=== PATIENT | female | born 2000 | race Caucasian/White ===

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

== ENCOUNTER 2019-01-02 17:43 | Emergency (ER) | payer OTHER ==
[2019-01-02 17:49] VITALS: BP 109/59
--- NOTE | 2019-01-02 18:13 | UC ---
General HPI - HPI Summary HPI Summary: RN notes reviewed - pt states she has been having lt shoulder muscle pain over the past 1 month. 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 pt states this pain is now in her lt arm. 18 yo female presents with mom c/o progressive L upper lat ant shoulder pain and left ant upper chest pain. Hurts to move the shoulder, carol abduction > 90d. When moves shoulder in full abduction, feels dysesthesia in fingers. Has not used nsaid, d/t it doesn't work. Has not used sling / splint, but has been holding the arm close to her chest to minimize discomfort. No known injury. No known prior injury. No rash. No sob /cp /palpitations. No GI / issues. Mild uri over a month ago, resolved well before pain started, does not think related to shoulder discomfort. Pt is R handed. - History of Current Complaint Chief Complaint: UCUpperExtremity Stated Complaint: ARM PAIN Time Seen by Provider: 01/02/19 18:13 Hx Obtained From: Patient, Family/Aviation [employer]ician [employer] Hx Last Menstrual Period: 12/15 Pain Intensity: 7 - Allergy/Home Medications Allergies/Adverse Reactions: Allergies Allergy/AdvReac Type Severity Reaction Status Date / Time No Known Allergies Allergy Verified 01/02/19 17:50 Home Medications: Home Medications Medroxyprogesterone Acetate [Depo-Provera Contraceptiv] 150 mg IM 01/02/19 [ History] PMH/Surg Hx/FS Hx/Imm Hx Previously Healthy: Yes - Surgical History Surgical History: Yes Surgery Procedure, Year, and Place: T&A, Left OVARY REMOVED FOR TORSION - Family History Known Family History: Positive: Other - cervical cancer - mom Negative: Hypertension - Social History Alcohol Use: Rare Alcohol Amount: Holiday Substance Use Type: Marijuana Substance Use Comment - Amount & Last Used: daily Smoking Status (MU): Light Every Day Tobacco Smoker Type: Cigarettes Amount Used/How Often: 5 CIG/DAY Have You Smoked in the Last Year: No Household Exposure Type: Cigarettes - Immunization History Most Recent Influenza Vaccination: 2016 Most Recent Tetanus Shot: utd Most Recent Pneumonia Vaccination: none Vaccination Up to Date: Yes Review of Systems All Other Systems Reviewed And Are Negative: Yes Constitutional: Positive: Negative Skin: Positive: Negative Eyes: Positive: Negative ENT: Positive: Negative, Other - see hpi Respiratory: Positive: Other - see hpi Cardiovascular: Positive: Other - see hpi Gastrointestinal: Positive: Negative Genitourinary: Positive: Negative Motor: Positive: Other - see hpi Neurovascular: Positive: Other - see hpi Musculoskeletal: Positive: Other: - see hpi Neurological: Positive: Other - see hpi Psychological: Positive: Negative Is Patient Immunocompromised?: No Physical Exam Triage Information Reviewed: Yes Appearance: Well-Appearing - hurts with examination, Well-Nourished Vital Signs: Initial Vital Signs Temp 99.3 F 01/02/19 17:44 Pulse 88 01/02/19 17:44 Resp 18 01/02/19 17:44 BP 109/59 01/02/19 17:44 Pulse Ox 100 01/02/19 17:44 Vital Signs Reviewed: Yes Eye Exam: Normal - grossly nonfocal ENT Exam: Normal Neck exam: Other - no carotid bruits Neck: Positive: Supple, Nontender - not focal tender, but c/o pain does shoot up left lat neck, No Lymphadenopathy Respiratory Exam: Normal Respiratory: Positive: Lungs clear, Normal breath sounds, No respiratory distress, No accessory muscle use Cardiovascular Exam: Normal Cardiovascular: Positive: RRR, No Murmur, Pulses Normal - HR correlates with L rad and ulnar pulses, Brisk Capillary Refill Abdominal Exam: Normal Abdomen Description: Positive: Nontender - no bruit appreciated Musculoskeletal Exam: Other - R ant upper shoulder discomfort to pressure upper bicep, some atrophy. Without point bony tenderness. Tender R upper ant chest wall, no rash, no crepitus. Able to abduct to approx 90% active, passive approx 100% but discontinued d/t pain. Neurological Exam: Other - see [facility] Psychological Exam: Normal Psychological: Positive: Normal Response To Family Skin Exam: Normal - nondiaphoresis. no visible or reported rash. Course/Dx - Course Course Of Treatment: ucg neg CXR - nad L shoulder - alignment ok, ? fx mid clavicle (not acute) 19:20 - d/w pt and mom. clavicle xray ordered prelim reading - final reading tomorrow per radiologist. D/w pt and mom. D/w pt and mom coa / tx plan. Will start sling during day for comfort. NSAID for at least the next 3 days. Call [facility] tomorrow to arrange f/u this week. - Diagnoses Provider Diagnosis: Arm pain, Clavicle pain, Clavicle fracture Discharge - Sign-Out/Discharge Documenting (check all that apply): Patient Departure All imaging exams completed and their final reports reviewed: No - Discharge Plan Condition: Stable Disposition: HOME Patient Education Materials: Clavicle Fracture (ED), Shoulder Pain (ED), Acetaminophen and Ibuprofen Dosing in Children (ED) Forms: *Physical Education Release Referrals: Arabella Self NP [Primary Care Provider] - Additional Instructions: POSSIBLE non-acute collar bone fracture. Final radiology read today. Sling during the day for comfort. Antiinflammatory (ex ibuprofen) at least 2x / day for 3 days, then as directed on packaging as needed for pain / inflammation. Follow up with [facility] - call tomorrow for appointment in the next 1-2 weeks. Follow up with Orthopedic doctor - call tomorrow for appointment, recommend within 1 week. Seek medical attention for worse or new problems. - Billing Disposition and Condition Condition: STABLE Disposition: Home
--- NOTE | 2019-01-03 14:33 | UC ---
- Progress Note Progress Note: RADIOLOGY REPORT REVIEWED. CONFIRMS Likely undisplaced fracture of the midshaft of the left clavicle. NO CHANGE IN MGMT. FOLLOW-UP ORTHO ADVISED. CALLED PT A COURTESY TO ADVISE BUT NO ANSWER AND VOICE MAIL NOT SET UP. Course/Dx - Diagnoses Provider Diagnoses: Arm pain, Clavicle pain, Clavicle fracture Discharge - Sign-Out/Discharge Documenting (check all that apply): Post-Discharge Follow Up All imaging exams completed and their final reports reviewed: Yes - Discharge Plan Condition: Stable Disposition: HOME Patient Education Materials: Clavicle Fracture (ED), Shoulder Pain (ED), Acetaminophen and Ibuprofen Dosing in Children (ED) Forms: *Physical Education Release Referrals: Arabella Self NP [Primary Care Provider] - Additional Instructions: POSSIBLE non-acute collar bone fracture. Final radiology read today. Sling during the day for comfort. Antiinflammatory (ex ibuprofen) at least 2x / day for 3 days, then as directed on packaging as needed for pain / inflammation. Follow up with [facility] - call tomorrow for appointment in the next 1-2 weeks. Follow up with Orthopedic doctor - call tomorrow for appointment, recommend within 1 week. Seek medical attention for worse or new problems. - Billing Disposition and Condition Condition: STABLE Disposition: Home
== END 2019-01-02 19:45 | disposition home or self-care (01) ==
LOC: UCEAST 17:43
DX: M25.512 Pain in left shoulder (principal); R07.89 Other chest pain; Z32.02 Encounter for pregnancy test, result negative; F17.210 Nicotine dependence, cigarettes, uncomplicated
CPT/HCPCS: 71046; 84702; 99211; G0463

== ENCOUNTER 2019-05-10 23:07 | Emergency (ER) | payer OTHER ==
[2019-05-10] MEDS ORDERED: NS 0.9% 1000 ML** 1,000 ML IV ONE (23:54)
[2019-05-10] MEDS ORDERED: Ketorolac INJ* 30 MG/ML 1 ML VIAL IV ONE (23:54)
--- OUTSIDE RECORDS SUMMARY | 2019-05-10 23:59 | XMS REPORT | Continuity of Care Document ---
:2000 External Reference #:[id number] Author Name Arabella Self C.P.NVera Address [address] [place] [address] Care Team Providers Name Role Phone Arabella Self C.P.NVera - Pediatrics Care Team Information Licensed Prosthetist Problems Active Problems Provider Date Active rickets Arabella Self C.P.NLupePLupe Onset: 03/12/2011 Note: HYPOPHOSPHATE Hearing loss Arabella Self C.P.N.PLupe Onset: 04/02/2011 Generalized anxiety disorder Rosana Marti D.O. Onset: 12/18/2012 Moderate depression Arabella Self C.P.N.PLupe Onset: 06/17/2015 Major depressive disorder Arabella Self C.P.N.PLupe Onset: 08/21/2018 Borderline personality disorder Arabella Self C.P.NLupePLupe Onset: 08/21/2018 Disability affecting daily living Arabella Self C.P.N.PLupe Onset: 08/21/2018 Torsion of ovary Arabella Self C.P.NLupePLupe Onset: 10/10/2018 Note: removal of left ovary Social History Type Date Description Comments Sex Unknown Tobacco Use Start: Unknown Light tobacco smoker (10 or fewer cigarettes/day) Smoking Status Reviewed: 05/01/19 Light tobacco smoker (10 or fewer cigarettes/day) Seat Belt/Car Seat always uses seat belt Guns in Home No Allergies, Adverse Reactions, Alerts Description No Known Drug Allergies Medications Active Medications SIG Qnty Indications Ordering Provider Date Benzoyl Peroxide apply to face at 60gm L70.0 Rosana Marti, 01/24/2019 5% Gel bedtime D.O. Hydroxyzine HCL Unknown 50mg Tablets Depo-Provera Unknown 150mg/ml Suspension Medications Administered in Office Medication SIG Qnty Indications Ordering Provider Date TB Intradermal Test Rosana Marti D.O. 09/06/2012 Injection Immunizations CPT Code Status Date Vaccine Lot # [id number] Given 06/23/2016 Flu Inj Quadrivalent .5ml Preserve Free [id number] Given 11/28/2015 Meningococcal A,C,Y,W135 (Menactra) [id number] Preservative Free 58431 Given 06/17/2015 Flu Inj Quadrivalent .5ml Preserve Free [id number] 75136 Given 05/28/2014 Flu Inj Quadrivalent .5ml Preserve Free [id number] 24465 Given 06/04/2013 HPV 4 Gardasil 4 [id number] 48791 Given 05/17/2013 Flu Inj Quadrivalent .5ml Preserve Free [id number] 82376 Given 06/17/2012 Flu Vacc Preserv Free Trivalent 3+yrs [id number] 69204 Given 06/04/2011 Flu Vacc Preserv Free Trivalent 3+yrs [id number] 56315 Given 06/04/2011 HPV 4 Gardasil 4 [id number] 24804 Given 04/02/2011 Hepatitis A Vaccine Pediatric/Adolescent 2 [id number] Dose Schedule 29100 Given 04/02/2011 HPV 4 Gardasil 4 [id number] 58785 Given 06/22/2010 Flu Vacc Preserv Free Trivalent 3+yrs [id number] 56352 Given 12/30/2009 Varicella (Chicken Pox) Immunization [id number] 58569 Given 12/30/2009 TdaP Immunization Age 7+ [id number] 91099 Given 12/30/2009 Hepatitis A Vaccine Pediatric/Adolescent 2 [id number] Dose Schedule 07903 Given 12/03/2008 Meningococcal A,C,Y,W135 (Menactra) Preservative Free 97976 Given 07/02/2008 Flu Vacc Preserv Free Trivalent 3+yrs 83656 Given 06/26/2007 Flu Vacc Preserv Free Trivalent 3+yrs 00975 Given 06/28/2006 Flu Vacc Preserv Free Trivalent 3+yrs 11032 Given 10/29/2004 DTaP Immunization under age 7 74331 Given 10/29/2004 MMR Virus Immunization 40490 Given 10/29/2004 Poliomyelitis Immunization 56351 Given 07/27/2001 Pneumococcal 7valent - Prevnar 96533 Given 04/06/2001 Pneumococcal 7valent - Prevnar 40891 Given 01/04/2001 DTaP Immunization under age 7 75593 Given 01/04/2001 Hib Vaccine 30331 Given 10/06/2000 Varicella (Chicken Pox) Immunization 87634 Given 10/06/2000 Poliomyelitis Immunization 70235 Given 10/06/2000 MMR Virus Immunization 55091 Given 04/04/2000 Hib Vaccine 19695 Given 04/04/2000 DTaP Immunization under age 7 16299 Given 04/04/2000 Hepatitis B Imm Age 0 to 19yr 06059 Given 01/29/2000 Hepatitis B Imm Age 0 to 19yr 12697 Given 01/29/2000 Poliomyelitis Immunization 50656 Given 01/29/2000 DTaP Immunization under age 7 35671 Given 01/29/2000 Hib Vaccine 85538 Given 1999 Poliomyelitis Immunization 34189 Given 1999 DTaP Immunization under age 7 34948 Given 1999 Hib Vaccine 06655 Given 1999 Hepatitis B Imm Age 0 to 19yr Vital Signs Date Vital Result Comment 05/04/2019 12:03pm Weight 122.25 lb Weight 55.453 kg Weight Percentile 39th Body Temperature 98.6 F Heart Rate 74 /min BP Systolic 108 mmHg BP Diastolic 65 mmHg 05/01/2019 3:50pm Height 58 inches 4'10" Height Percentile 3 % Weight 122.50 lb Weight 55.566 kg Weight Percentile 40th Heart Rate 88 /min BP Systolic 112 mmHg BP Diastolic 67 mmHg BMI (Body Mass Index) 25.6 kg/m2 Body Mass Index Percentile 82 % Results Test Date Facility Test Result H/L Range Note CBC Auto 05/01/2019 [facility] White Blood 8.6 10^3/uL Normal 3.5-10.[address] Count [place], [place] [id number] [phone] Red Blood Count 4.78 10^6/uL Normal 3.70-4.87 Hemoglobin 13.6 g/dL Normal 12.0-16.0 Hematocrit 40 % Normal 35-47 Mean Corpuscular Volume 84 fL Normal 80-97 Mean Corpuscular Hemoglobin 29 pg Normal 27-31 Mean Corpuscular HGB Conc 34 g/dL Normal 31-36 Red Cell Distribution Width 14 % Normal 10-15 Abs Neutrophils 4.4 10^3/uL Normal 1.5-7.7 Abs Lymphocytes 3.3 10^3/uL Normal 1.0-4.8 Abs Monocytes 0.5 10^3/uL Normal 0-0.8 Abs Eosinophils 0.3 10^3/uL Normal 0-0.6 Abs Basophils 0.1 10^3/uL Normal 0-0.2 Abs Nucleated RBC 0.0 10^3/uL Granulocyte % 51.5 % Lymphocyte % 38.7 % Monocyte % 6.1 % Eosinophil % 3.1 % Basophil % 0.6 % Nucleated Red Blood Cells % 0.0 Platelet Count (SEE NOTE) 10^3/uL 150-450 1 Mean Platelet Volume (SEE NOTE) fL 7.4-10.4 2 Comp Metabolic 05/01/2019 [facility] Sodium 138 mmol/L Normal 135-[address] [place] [address] [phone] Potassium 4.0 mmol/L Normal 3.5-5.0 Chloride 108 mmol/L Normal 101-111 Co2 Carbon Dioxide 25 mmol/L Normal 22-32 Anion Gap 5 mmol/L Normal 2-11 Glucose 96 mg/dL Normal 70-100 Blood Urea Nitrogen 8 mg/dL Normal 6-24 Creatinine 0.57 mg/dL Normal 0.51-0.95 BUN/Creatinine Ratio 14.0 Normal 8-20 Calcium 9.5 mg/dL Normal 8.6-10.3 Total Protein 7.1 g/dL Normal 6.4-8.9 Albumin 4.7 g/dL Normal 3.2-5.2 Globulin 2.4 g/dL Normal 2-4 Albumin/Globulin Ratio 2.0 Normal 1-3 Total Bilirubin 0.20 mg/dL Normal 0.2-1.0 Alkaline Phosphatase 101 U/L Normal 34-104 Alt 4 U/L Low 7-52 Ast 13 U/L Normal 13-39 Egfr Non- 136.6 >60 Egfr 165.3 >60 3 Laboratory test 05/01/2019 [facility] Lyme Screen Negative Negative finding [address] W/ [place] [address] WB [phone] TSH (Thyroid Stim Horm) 2.01 mcIU/mL Normal 0.34-5.60 Vitamin D Total 25(Oh) 27.8 ng/mL Normal 20-50 4 Laboratory test 01/02/2019 [facility] Poc , Negative Negative [address] [place] [address] [phone] 1 PLT CLUMPS 2 PLT CLUMPS 3 Because ethnic data is not always readily available, this report includes an eGFR for both -Americans and non- Americans. The National Kidney Disease Education Program (NKDEP) does not endorse the use of the MDRD equation for patients that are not between the ages of 18 and 70, are , have extremes of body size, muscle mass, or nutritional status, or are non- or non-. According to the National Kidney Foundation, irrespective of diagnosis, the stage of the disease is based on the level of kidney function: Stage Description GFR(mL/min/1.73 m(2)) 1 Kidney damage with normal or decreased GFR 90 2 Kidney damage with mild decrease in GFR 60-89 3 Moderate decrease in GFR 30-59 4 Severe decrease in GFR 15-29 5 Kidney failure <15 (or dialysis) 4 Total 25-Hydroxyvitamin D2 and D3 (25-OH-VitD) <10 ng/mL (severe deficiency) 10-19 ng/mL (mild to moderate deficiency) 20-50 ng/mL (optimum levels) 51-80 ng/mL (increased risk of hypercalciuria) >80 ng/mL (toxicity possible) 5 Engineering Surveyor: [id number] Test Disclaimer: Positive bacteria, red blood cells, white blood cells, early , low specific gravity, and other factors may cause false positive or negative results. It is recommended to retest unexpected results within 24 to 72 hours with a serum test when applicable. If is still suspected, please repeat test after 48 to 72 hours. Procedures Description No Information Available Medical Devices Description No Information Available Encounters Type Date Location Provider Dx Diagnosis Office Visit 05/04/2019 12:15p Main Office Arabella Self, R53.83 Other fatigue C.P.N.P. R10.9 Unspecified abdominal pain Office Visit 05/01/2019 East Office Scarquan Alves, R53.83 Other fatigue 4:00p M.DLupe Office Visit 01/24/2019 [facility] Office Rosana Marti, H65.93 Unspecified 9:30a D.O. nonsuppurative otitis media, bilateral L70.0 Acne vulgaris Assessments Date Code Description Provider 05/04/2019 R53.83 Other fatigue Weston Randolph.P.N.P. 05/04/2019 R10.9 Unspecified abdominal pain Weston Randolph.P.N.P. 05/01/2019 R53.83 Other fatigue Scar Alves M.D. 01/24/2019 H65.93 Serous otitis media Rosana Marti D.O. 01/24/2019 L70.0 Acne Rosana Marti D.O. Plan of Treatment 05/04/2019 - Chucky RandolphP.N.PLupeR53.83 Other [id number] Unspecified abdominal painNew Labs:.Urine Culture In House, Ordered: 05/04/19.Urine dip - see nurse note, Ordered: 05/04/19Follow up:As needed. Functional Status Description No Information Available Mental Status Description No Information Available Referrals Refer to Dr Reason for Referral Status Appt Date Ranjan Perez M.D. Acne Sent 02/26/2019 [facility] [address] [place] [address], [address] [place] [id number] [phone]
--- OUTSIDE RECORDS SUMMARY | 2019-05-10 23:59 | XMS REPORT | Continuity of Care Document ---
:1999 External Reference #:[id number] Author Name Scar Alves M.D. Address [address] [place] [address] Care Team Providers Name Role Phone Arabella Self C.P.NLupePLupe - Pediatrics Care Team Information Marketing Project Lead Problems Active Problems Provider Date Active rickets Chucky RandolphPLupeNLupePLupe Onset: 03/12/2011 Note: HYPOPHOSPHATE Hearing loss Arabella Self C.P.N.PLupe Onset: 04/02/2011 Generalized anxiety disorder Rosana Marti D.O. Onset: 12/18/2012 Moderate depression Arabella Self C.P.N.PLupe Onset: 06/17/2015 Major depressive disorder Arabella Self C.P.N.PLupe Onset: 08/21/2018 Borderline personality disorder Arabella Self C.P.NLupePLupe Onset: 08/21/2018 Disability affecting daily living Arabella Self C.P.N.PLupe Onset: 08/21/2018 Torsion of ovary Arabella Self C.P.NVera Onset: 10/10/2018 Note: removal of left ovary [...] apply to face at 60gm L70.0 Rosana Burrisy, 01/24/2019 5% Gel bedtime D.O. Hydroxyzine HCL Unknown 50mg Tablets Depo-Provera Unknown 150mg/ml Suspension Medications Administered in Office Medication SIG Qnty Indications Ordering Provider Date TB Intradermal Test Rosana Marti D.O. 09/06/2012 Injection Immunizations CPT Code Status Date Vaccine Lot # [id number] Given 06/23/2016 Flu Inj Quadrivalent .5ml Preserve Free [id number] 86062 Given 11/28/2015 Meningococcal A,C,Y,W135 (Menactra) [id number] Preservative Free 31610 Given 06/17/2015 Flu Inj Quadrivalent .5ml Preserve Free [id number] 08607 Given 05/28/2014 Flu Inj Quadrivalent .5ml Preserve Free [id number] 72497 Given 06/04/2013 HPV 4 Gardasil 4 [id number] 84983 Given 05/17/2013 Flu Inj Quadrivalent .5ml Preserve Free [id number] 50005 Given 06/17/2012 Flu Vacc Preserv Free Trivalent 3+yrs [id number] 59123 Given 06/04/2011 Flu Vacc Preserv Free Trivalent 3+yrs [id number] 95624 Given 06/04/2011 HPV 4 Gardasil 4 [id number] 65522 Given 04/02/2011 Hepatitis A Vaccine Pediatric/Adolescent 2 [id number] Dose Schedule 91350 Given 04/02/2011 HPV 4 Gardasil 4 [id number] 08715 Given 06/22/2010 Flu Vacc Preserv Free Trivalent 3+yrs [id number] 20964 Given 12/30/2009 Varicella (Chicken Pox) Immunization [id number] 39759 Given 12/30/2009 TdaP Immunization Age 7+ [id number] 91923 Given 12/30/2009 Hepatitis A Vaccine Pediatric/Adolescent 2 [id number] Dose Schedule 01226 Given 12/03/2008 Meningococcal A,C,Y,W135 (Menactra) Preservative Free 90473 Given 07/02/2008 Flu Vacc Preserv Free Trivalent 3+yrs 98779 Given 06/26/2007 Flu Vacc Preserv Free Trivalent 3+yrs 48674 Given 06/28/2006 Flu Vacc Preserv Free Trivalent 3+yrs 96565 Given 10/29/2004 DTaP Immunization under age 7 84521 Given 10/29/2004 MMR Virus Immunization 05253 Given 10/29/2004 Poliomyelitis Immunization 45451 Given 07/27/2001 Pneumococcal 7valent - Prevnar 22095 Given 04/06/2001 Pneumococcal 7valent - Prevnar 30910 Given 01/04/2001 DTaP Immunization under age 7 79913 Given 01/04/2001 Hib Vaccine 77715 Given 10/06/2000 Varicella (Chicken Pox) Immunization 50332 Given 10/06/2000 Poliomyelitis Immunization 26749 Given 10/06/2000 MMR Virus Immunization 48511 Given 04/04/2000 Hib Vaccine 55048 Given 04/04/2000 DTaP Immunization under age 7 39843 Given 04/04/2000 Hepatitis B Imm Age 0 to 19yr 65591 Given 01/29/2000 Hepatitis B Imm Age 0 to 19yr 53614 Given 01/29/2000 Poliomyelitis Immunization 01144 Given 01/29/2000 DTaP Immunization under age 7 39309 Given 01/29/2000 Hib Vaccine 10344 Given 1999 Poliomyelitis Immunization 02191 Given 1999 DTaP Immunization under age 7 69966 Given 1999 Hib Vaccine 71220 Given 1999 Hepatitis B Imm Age 0 to 19yr Vital Signs Date Vital Result Comment 05/01/2019 3:50pm Height 58 inches 4'10" Height Percentile 3 % Weight 122.50 lb Weight 55.566 kg Weight Percentile 40th Heart Rate 88 /min BP Systolic 112 mmHg BP Diastolic 67 mmHg BMI (Body Mass Index) 25.6 kg/m2 Body Mass Index Percentile 82 % 01/24/2019 9:34am Weight 119.00 lb Weight 53.978 kg Weight Percentile 34th Body Temperature 98.4 F Results Test Date Facility Test Result H/L Range Note Laboratory test 01/02/2019 [facility] Negative Negative [address] , [place] [address] Urine [phone] 1 Product Support Engineer: [id number] Test Disclaimer: Positive bacteria, red blood cells, [...] Date Location Provider Dx Diagnosis Office Visit 01/24/2019 [facility] Office Rosana Figueroa, H65.93 Unspecified 9:30a D.O. nonsuppurative otitis media, bilateral L70.0 Acne vulgaris Assessments Date Code Description Provider 05/01/2019 R53.83 Other fatigue Scar Alves M.D. 01/24/2019 H65.93 Serous otitis media Suzanne Del RealOLupe 01/24/2019 L70.0 Acne Rosana Marti D.O. Plan of Treatment 05/01/2019 - Scar Alves M.D.R53.83 Other fatigueFollow up:with Arabella in 4 to 7 days, oc30 Functional Status Description No Information Available Mental Status Description No Information Available Referrals Refer to Dr Reason for Referral Status Appt Date Ranjan Perez M.D. Acne Sent 02/26/2019 [facility] [address] [place] [address], [place] [address] [phone]
[2019-05-11 00:31] LABS: ABS Basophils 0.1 10^3/ul (0-0.2); ABS Eosinophils 0.3 10^3/ul (0-0.6); ABS Lymphocytes 4.2 10^3/ul (1.0-4.8); ABS Monocytes 0.7 10^3/ul (0-0.8); ABS Neutrophils 4.3 10^3/ul (1.5-7.7); Eosinophil % 2.9 %; Hematocrit 39 % (35-47); Hemoglobin 12.7 g/dL (12.0-16.0); Lymphocyte % 44.3 %; Mean Corpuscular HGB Conc 33 g/dL (31-36); Mean Corpuscular Hemoglobin 28 pg (27-31); Mean Corpuscular Volume 84 fL (80-97); Mean Platelet Volume 8.7 fL (7.4-10.4); Nucleated Red Blood Cells % 0.1; Platelet Count 174 10^3/uL (150-450); Red Blood Count 4.56 10^6 /uL (3.70-4.87); Red Cell Distribution Width 14 % (10-15); White Blood Count 9.5 10^3/uL (3.5-10.8)
[2019-05-11 00:37] LABS: Urine Appearance Cloudy; Urine Bacteria Absent (Absent); Urine Bilirubin Negative (Negative); Urine Blood 3+ (Negative); Urine Color Straw; Urine Glucose Negative (Negative); Urine Ketones Negative (Negative); Urine Nitrite Negative (Negative); Urine Protein Negative (Negative); Urine Red Blood Cell Trace(0-2/hpf) (Absent); Urine Specific Gravity 1.004 (1.010-1.030); Urine Squamous Epithelial Cell Present (Absent); Urine Urobilinogen Negative (Negative); Urine White Blood Cell Trace(0-5/hpf) (Absent)
[2019-05-11 00:39] LABS: INR 1.05 (0.82-1.09)
[2019-05-11 00:51] LABS: ALT 4 U/L (7-52); AST 14 U/L (13-39); Albumin 4.3 g/dL (3.2-5.2); Albumin/Globulin Ratio 1.7 (1-3); Alkaline Phosphatase 85 U/L (34-104); Anion Gap 4 mmol/L (2-11); BUN/Creatinine Ratio 9.5 (8-20); Blood Urea Nitrogen 6 mg/dL (6-24); CO2 Carbon Dioxide 27 mmol/L (22-32); Calcium 8.8 mg/dL (8.6-10.3); Chloride 108 mmol/L (101-111); EGFR African American 147.3 (>60); EGFR Non-African American 121.7 (>60); Globulin 2.5 g/dL (2-4); Glucose 83 mg/dL (70-100); Potassium 3.8 mmol/L (3.5-5.0); Sodium 139 mmol/L (135-145); Total Protein 6.8 g/dL (6.4-8.9)
[2019-05-11 00:58] LABS: HCG Pregnancy < 0.60 mIU/mL
[2019-05-11 01:54] LABS: HIV 4th Generation Nonreactive (Nonreactive)
--- NOTE | 2019-05-11 02:13 | ED ---
Abdominal Pain/Female - HPI Summary HPI Summary: /Patient is a 18 year old F presenting to [facility] accompanied by boyfriend with chief complaint of vaginal bleeding for the past days. Patient states that she was seen by her PCP on Tuesday05/04/19 and went [facility] Tuesday. Patient denies taking anything for pain. Patient denies nausea, vomiting, and fever. Patient rates the pain 7/10. Symptoms aggravated by nothing. Symptoms alleviated by nothing. - History of Current Complaint Chief Complaint: EDVaginalBleeding Stated Complaint: HEMORRHAGING PER EMS Time Seen by Provider: 05/10/19 23:54 Hx Obtained From: Patient Hx Last Menstrual Period: 12/15 ?: No Onset/Duration: Lasting Days - 05/04/19 Timing: Constant Severity Currently: Moderate Pain Intensity: 7 Pain Scale Used: 0-10 Numeric Location: Suprapubic Radiates: No Character: Sharp Aggravating Factor(s): Nothing Alleviating Factor(s): Nothing Associated Signs and Symptoms: Positive: Vaginal Bleeding. Negative: Fever, Nausea, Vomiting Allergies/Adverse Reactions: Allergies Allergy/AdvReac Type Severity Reaction Status Date / Time No Known Allergies Allergy Verified 01/02/19 17:50 PMH/Surg Hx/FS Hx/Imm Hx Endocrine/Hematology History: Denies: Hx Diabetes, Hx Systemic Lupus Erythematosus, Hx Sickle Cell Disease , Hx Thyroid Disease, Other Endocrine/Hematological Disorders Cardiovascular History: Denies: Hx Hypertension, Hx Pacemaker/ICD Respiratory History: Reports: Hx Asthma, Other Respiratory Problems/Disorders - PLEURISY? History: Reports: Hx Kidney Stones, Other Problems/Disorders - LEFT OVARIAN TORSION 2005- OVARY REMOVED Denies: Hx Renal Disease Musculoskeletal History: Reports: Other Musculoskeletal History - IDIOPATHIC DWARFISM and vit D-resistant nellie Sensory History: Denies: Hx Contacts or Glasses, Hx Legally Blind, Hx Deafness, Hx Hearing Aid Opthamlomology History: Denies: Hx Contacts or Glasses, Hx Legally Blind Neurological History: Reports: Hx Migraine Psychiatric History: Reports: Hx Anxiety, Hx Depression, Hx Inpatient Treatment , Hx Community Mental Health Tx, Hx Suicide Attempt, Hx Substance Abuse - pos for MJ this admission Denies: Hx Attention Deficit Hyperactivity Disorder, Hx Eating Disorder, Hx Panic Disorder, Hx Bipolar Disorder, Hx of Violent Episodes Against Others - Cancer History Hx Chemotherapy: No Hx Radiation Therapy: No Hx Palliative Cancer Treatment: No - Surgical History Surgery Procedure, Year, and Place: T&A, Left OVARY REMOVED FOR TORSION Hx Anesthesia Reactions: No - Immunization History Date of Tetanus Vaccine: UNK Date of Influenza Vaccine: UNK Infectious Disease History: Yes Infectious Disease History: Denies: Hx Clostridium Difficile, Hx Hepatitis, Hx Human Immunodeficiency Virus (HIV), Hx of Known/Suspected MRSA, Hx Shingles, Hx Tuberculosis, Hx Known/ Suspected VRE, Hx Known/Suspected VRSA, History Other Infectious Disease, Traveled Outside the [place] in Last 30 Days - Family History Known Family History: Positive: Other - cervical cancer - mom Negative: Hypertension - Social History Alcohol Use: Rare Alcohol Amount: Holiday Hx Substance Use: Yes Substance Use Type: Reports: Marijuana Substance Use Comment - Amount & Last Used: daily Hx Tobacco Use: No Smoking Status (MU): Light Every Day Tobacco Smoker Type: Cigarettes Amount Used/How Often: 5 CIG/DAY Have You Smoked in the Last Year: No Review of Systems Negative: Fever Positive: Abdominal Pain. Negative: Vomiting, Nausea Positive: other - Vaginal bleeding All Other Systems Reviewed And Are Negative: Yes Physical Exam - Summary Physical Exam Summary: General: Well-developed, Well-nourished (MALE/FEMALE). No acute distress. HEENT: Normocephalic, Atraumatic. Eyes: Conjuctiva normal, PERRL. Ears: TMs within normal limits. Nares: (-) discharge, (-) erythema. Oropharynx: Clear, mucous membranes moist, (-) exudates. Neck: Soft, FROM, (-) lymphadenopathy, (-) thyromegaly, (-) JVD. Cardiovascular: Normal sinus rhythm, (-) murmur. Lungs: Clear to auscultation bilaterally (-) wheezes, (-) rales, (-) rhonchi. Abdomen: Soft, Mild lower abdominal tenderness , non-distended, (-) organomegaly , normal bowel sounds. Back: (-) CVA tenderness Extremities: No edema. Skin: Warm, dry, (-) rash. Neuro: Alert and oriented x3, no focal deficits. Psychiatric: Mood normal, affect normal. Triage Information Reviewed: Yes Vital Signs On Initial Exam: Initial Vitals Temp Pulse Resp BP Pulse Ox 98.0 F 84 18 99/69 100 05/10/19 23:10 05/10/19 23:10 05/10/19 23:10 05/10/19 23:10 05/10/19 23:10 Vital Signs Reviewed: Yes Diagnostics - Vital Signs Vital Signs Temp Pulse Resp BP Pulse Ox 05/11/19 01:55 98.0 F 70 17 104/56 98 05/10/19 23:10 98.0 F 84 18 99/69 100 - Laboratory Lab Results: Lab Results 05/11/19 05/11/19 05/11/19 Range/Units 00:00 00:17 00:17 WBC 9.5 (3.5-10.8) 10^3/uL RBC 4.56 (3.70-4.87) 10^6 /uL Hgb 12.7 (12.0-16.0) g/dL Hct 39 (35-47) % MCV 84 (80-97) fL MCH 28 (27-31) pg MCHC 33 (31-36) g/dL RDW 14 (10-15) % Plt Count 174 (150-450) 10^3/uL MPV 8.7 (7.4-10.4) fL Neut % (Auto) 45.2 % Lymph % (Auto) 44.3 % [place] % (Auto) 6.9 % Eos % (Auto) 2.9 % Baso % (Auto) 0.7 % Absolute Neuts (auto) 4.3 (1.5-7.7) 10^3/ul Absolute Lymphs (auto) 4.2 (1.0-4.8) 10^3/ul Absolute Monos (auto) 0.7 (0-0.8) 10^3/ul Absolute Eos (auto) 0.3 (0-0.6) 10^3/ul Absolute Basos (auto) 0.1 (0-0.2) 10^3/ul Absolute Nucleated RBC 0.0 10^3/ul Nucleated RBC % 0.1 INR (Anticoag Therapy) 1.05 (0.82-1.09) Sodium (135-145) mmol/L Potassium (3.5-5.0) mmol/L Chloride (101-111) mmol/L Carbon Dioxide (22-32) mmol/L Anion Gap (2-11) mmol/L BUN (6-24) mg/dL Creatinine (0.51-0.95) mg/dL Est GFR ( Amer) (>60) Est GFR (Non-Af Amer) (>60) BUN/Creatinine Ratio (8-20) Glucose (70-100) mg/dL Lactic Acid (0.5-2.0) mmol/L Calcium (8.6-10.3) mg/dL Total Bilirubin (0.2-1.0) mg/dL AST (13-39) U/L ALT (7-52) U/L Alkaline Phosphatase (34-104) U/L Total Protein (6.4-8.9) g/dL Albumin (3.2-5.2) g/dL Globulin (2-4) g/dL Albumin/Globulin Ratio (1-3) Beta HCG, Quant mIU/mL Urine Color Straw Urine Appearance Cloudy Urine pH 7.0 (5-9) Ur Specific [place] 1.004 L (1.010-1.030) Urine Protein Negative (Negative) Urine Ketones Negative (Negative) Urine Blood 3+ A (Negative) Urine Nitrate Negative (Negative) Urine Bilirubin Negative (Negative) Urine Urobilinogen Negative (Negative) Ur Leukocyte Esterase Trace A (Negative) Urine WBC (Auto) Trace(0-5/hpf) (Absent) Urine RBC (Auto) Trace(0-2/hpf) (Absent) Ur Squamous Epith Cells Present A (Absent) Urine Bacteria Absent (Absent) Urine Glucose Negative (Negative) 05/11/19 05/11/19 Range/Units 00:17 00:17 WBC (3.5-10.8) 10^3/uL RBC (3.70-4.87) 10^6 /uL Hgb (12.0-16.0) g/dL Hct (35-47) % MCV (80-97) fL MCH (27-31) pg MCHC (31-36) g/dL RDW (10-15) % Plt Count (150-450) 10^3/uL MPV (7.4-10.4) fL Neut % (Auto) % Lymph % (Auto) % [place] % (Auto) % Eos % (Auto) % Baso % (Auto) % Absolute Neuts (auto) (1.5-7.7) 10^3/ul Absolute Lymphs (auto) (1.0-4.8) 10^3/ul Absolute Monos (auto) (0-0.8) 10^3/ul Absolute Eos (auto) (0-0.6) 10^3/ul Absolute Basos (auto) (0-0.2) 10^3/ul Absolute Nucleated RBC 10^3/ul Nucleated RBC % INR (Anticoag Therapy) (0.82-1.09) Sodium 139 (135-145) mmol/L Potassium 3.8 (3.5-5.0) mmol/L Chloride 108 (101-111) mmol/L Carbon Dioxide 27 (22-32) mmol/L Anion Gap 4 (2-11) mmol/L BUN 6 (6-24) mg/dL Creatinine 0.63 (0.51-0.95) mg/dL Est GFR ( Amer) 147.3 (>60) Est GFR (Non-Af Amer) 121.7 (>60) BUN/Creatinine Ratio 9.5 (8-20) Glucose 83 (70-100) mg/dL Lactic Acid 0.5 (0.5-2.0) mmol/L Calcium 8.8 (8.6-10.3) mg/dL Total Bilirubin 0.30 (0.2-1.0) mg/dL AST 14 (13-39) U/L ALT 4 L (7-52) U/L Alkaline Phosphatase 85 (34-104) U/L Total Protein 6.8 (6.4-8.9) g/dL Albumin 4.3 (3.2-5.2) g/dL Globulin 2.5 (2-4) g/dL Albumin/Globulin Ratio 1.7 (1-3) Beta HCG, Quant < 0.60 mIU/mL Urine Color Urine Appearance Urine pH (5-9) Ur Specific [place] (1.010-1.030) Urine Protein (Negative) Urine Ketones (Negative) Urine Blood (Negative) Urine Nitrate (Negative) Urine Bilirubin (Negative) Urine Urobilinogen (Negative) Ur Leukocyte Esterase (Negative) Urine WBC (Auto) (Absent) Urine RBC (Auto) (Absent) Ur Squamous Epith Cells (Absent) Urine Bacteria (Absent) Urine Glucose (Negative) Result Diagrams: 05/11/19 00:17 05/11/19 00:17 Lab Statement: Any lab studies that have been ordered have been reviewed, and results considered in the medical decision making process. Abdominal Pain Fem Course/Dx - Diagnoses Provider Diagnoses: Metrorrhagia Discharge ED - Sign-Out/Discharge Documenting (check all that apply): Patient Departure - discharge Patient Received Moderate/Deep Sedation with Procedure: No - Discharge Plan Condition: Stable Disposition: HOME Patient Education Materials: Dysfunctional Uterine Bleeding (ED) Referrals: [facility] [Outside] - 3 Days Arabella Self NP [Primary Care Provider] - 3 Days Additional Instructions: Please follow up with your primary care physician as well as [facility] in [place] within three days. Please return to ED for any new or worsening symptoms. - Billing Disposition and Condition Condition: STABLE Disposition: Home - Attestation Statements Document Initiated by Ajay: Yes Documenting Pamibe: Tenisha Daugherty Provider For Whom Ajay is Documenting (Include Credential): Dr. Kari Christianson MD Scribe Attestation: Tenisha Ignacio scribed for Dr. Kari Christianson MD on 05/11/19 at 0610. Scribe Documentation Reviewed: Yes Provider Attestation: The documentation as recorded by the Tenisha platt accurately reflects the service I personally performed and the decisions made by , Dr. Kari Christianson MD Status of Scribe Document: Viewed
[2019-05-11 02:22] VITALS: BP 0/0
== END 2019-05-11 02:20 | disposition home or self-care (01) ==
LOC: ED 23:07
DX: N92.1 Excessive and frequent menstruation with irregular cycle (principal); F41.9 Anxiety disorder, unspecified; F32.9 Major depressive disorder, single episode, unspecified; F17.210 Nicotine dependence, cigarettes, uncomplicated; Z90.721 Acquired absence of ovaries, unilateral
CPT/HCPCS: 36415; 80053; 81003; 81015; 83605; 84702; 85025; 85610; 87086; 87389; 96361; 96374; 99282; J1885

== ENCOUNTER 2019-08-15 09:39 | Emergency (ER) | payer OTHER ==
--- NOTE | 2019-08-15 10:18 | ED ---
Influenza-Like Illness - HPI Summary HPI Summary: The patient is a 18 y/o F presenting to [facility] with a chief complaint of flu- like symptoms gradually onset over the last 3-4 days. She reports that she woke up with fever, chills, body aches specifically in the bilateral flanks and chest , sinus congestion, fatigue, headache, cough, dysuria, increased urinary frequency, nausea with one episode of vomiting a few days ago, and diarrhea for the last three days. She states that the chest pain feels muscular. She denies any sore throat now but had one recently. Her symptoms are currently rated 5/10 in severity. She has not taken any medications [employer] as treatment today. Her cousins have the flu, PNA, and bronchitis. She had PNA less than a month ago. She did not have a flu vaccine this year. PMHx: asthma, Silke with vitamin D resistance (no meds anymore as directed), kidney disease with sepsis, CMV, multiple UTIs when younger, borderline personality disorder, left ovarian removal, and tonsillectomy. Current smoker, rare EtOH, marijuana use. Medications reviewed. Allergies noted. - History of Current Complaint Chief Complaint: EDFluSymptoms Time Seen by Provider: 08/15/19 10:04 Hx Obtained From: Patient Onset/Duration: Lasting Days - 3-4, Still Present Severity: Moderate Associated Signs & Symptoms: Fever, Myalgia, Cough, Sore Throat, Nasal Congestion, Headache, Diarrhea - Allergy/Home Medications Allergies/Adverse Reactions: Allergies Allergy/AdvReac Type Severity Reaction Status Date / Time No Known Allergies Allergy Verified 08/15/19 09:46 Home Medications: Home Medications NK [No Home Medications Reported] 08/15/19 [History Confirmed 08/15/19] PMH/Surg Hx/FS Hx/Imm Hx Endocrine/Hematology History: Denies: Hx Diabetes, Hx Systemic Lupus Erythematosus, Hx Sickle Cell Disease , Hx Thyroid Disease, Other Endocrine/Hematological Disorders Cardiovascular History: Denies: Hx Hypertension, Hx Pacemaker/ICD Respiratory History: Reports: Hx Asthma, Other Respiratory Problems/Disorders - PLEURISY? History: Reports: Hx Kidney Stones, Other Problems/Disorders - LEFT OVARIAN TORSION 2005- OVARY REMOVED Denies: Hx Renal Disease Musculoskeletal History: Reports: Other Musculoskeletal History - IDIOPATHIC DWARFISM and vit D-resistant silke Sensory History: Denies: Hx Contacts or Glasses, Hx Legally Blind, Hx Deafness, Hx Hearing Aid Opthamlomology History: Denies: Hx Contacts or Glasses, Hx Legally Blind Neurological History: Reports: Hx Migraine Psychiatric History: Reports: Hx Anxiety, Hx Depression, Hx Inpatient Treatment , Hx Community Mental Health Tx, Hx Suicide Attempt, Hx Substance Abuse - pos for MJ this admission Denies: Hx Attention Deficit Hyperactivity Disorder, Hx Eating Disorder, Hx Panic Disorder, Hx Bipolar Disorder, Hx of Violent Episodes Against Others - Cancer History Hx Chemotherapy: No Hx Radiation Therapy: No Hx Palliative Cancer Treatment: No - Surgical History Surgical History: Yes Surgery Procedure, Year, and Place: T&A, Left OVARY REMOVED FOR TORSION Hx Anesthesia Reactions: No - Immunization History Date of Tetanus Vaccine: UNK Date of Influenza Vaccine: UNK Infectious Disease History: No Infectious Disease History: Denies: Hx Clostridium Difficile, Hx Hepatitis, Hx Human Immunodeficiency Virus (HIV), Hx of Known/Suspected MRSA, Hx Shingles, Hx Tuberculosis, Hx Known/ Suspected VRE, Hx Known/Suspected VRSA, History Other Infectious Disease, Traveled Outside the [place] in Last 30 Days - Family History Known Family History: Positive: Other - cervical cancer - mom Negative: Hypertension - Social History Alcohol Use: Rare Alcohol Amount: Holiday Hx Substance Use: Yes Substance Use Type: Reports: Marijuana Substance Use Comment - Amount & Last Used: daily Hx Tobacco Use: Yes Smoking Status (MU): Light Every Day Tobacco Smoker Type: Cigarettes Amount Used/How Often: 5 CIG/DAY Have You Smoked in the Last Year: No Review of Systems Positive: Fever, Chills, Fatigue Positive: Sore Throat, Other - sinus congestion Positive: Cough Positive: Diarrhea, Nausea. Negative: Vomiting Positive: dysuria, frequency, flank pain - bilateral Positive: Myalgia - bilateral flanks and chest Positive: Headache All Other Systems Reviewed And Are Negative: Yes Physical Exam - Summary Physical Exam Summary: Constitutional: Well-developed, Well-nourished, Alert. (-) Distressed Skin: Warm, Dry HENT: Normocephalic; Atraumatic Eyes: Conjunctiva normal Neck: Musculoskeletal ROM normal neck. (-) JVD, (-) Stridor, (-) Tracheal deviation Cardio: Rhythm regular, rate normal, Heart sounds normal; Intact distal pulses; Radial pulses are 2+ and symmetric. (-) Murmur Pulmonary/Chest wall: Effort normal. (-) Respiratory distress, (-) Wheezes, (-) Rales Abd: Soft, (-) tenderness, (-) Distension, (-) Guarding, (-) Rebound Back: (+) mild bilateral flank tenderness Musculoskeletal: (-) Edema Lymph: (-) Cervical adenopathy Neuro: Alert, Oriented x3 Psych: Mood and affect Normal Triage Information Reviewed: Yes Vital Signs On Initial Exam: Initial Vitals Temp Pulse Resp BP Pulse Ox 97.4 F 110 16 123/71 97 08/15/19 09:43 08/15/19 09:43 08/15/19 09:43 08/15/19 09:43 08/15/19 09:43 Vital Signs Reviewed: Yes Procedures - Sedation Patient Received Moderate/Deep Sedation with Procedure: No Diagnostics - Vital Signs Vital Signs Temp Pulse Resp BP Pulse Ox 08/15/19 09:43 97.4 F 110 16 123/71 97 - Laboratory Lab Statement: Any lab studies that have been ordered have been reviewed, and results considered in the medical decision making process. - Radiology CXR Radiology Interpretation Completed By: Radiologist Summary of Radiographic Findings: Impression: No active cardiopulmonary disease. ED physician has reviewed this imaging report. Re-Evaluation - Re-Evaluation First Eval Re-Evaluation Time: 12:10 Change: Improved Comment: We discussed all results and plan for discharge. Flu Symptom Course/Dx - Course Course Of Treatment: Patient is here with flulike symptoms. Patient's overall well appearing upon arrival of than borderline tachycardia. Patient's tachycardia improved while she was in the ED with minimal intervention. Patient had a negative HIV test which was requested by her. Patient had negative UA, flu swab, chest x-ray. Patient will be treated with symptomatic treatment. - Diagnoses Provider Diagnoses: Viral syndrome, Fatigue, Flank pain Discharge ED - Sign-Out/Discharge Documenting (check all that apply): Patient Departure - Patient will be discharged home. - Discharge Plan Condition: Stable Disposition: HOME Patient Education Materials: Viral Syndrome (ED), Flank Pain (ED), Fatigue (ED) Forms: *Work Release Referrals: Arabella Self NP [Primary Care Provider] - 3 Days Additional Instructions: Please take Ibuprofen and Tylenol for fever and pain. Use Pedialyte for hydration. Follow up with your primary care provider in 1-3 days. Return to the emergency department for any new or worsening symptoms such as trouble breathing , difficulty urinating, or any other concerning symptoms. - Billing Disposition and Condition Condition: STABLE Disposition: Home - Attestation Statements Document Initiated by Ajay: Yes Documenting Scribe: Linn Hurtado Provider For Whom Ajay is Documenting (Include Credential): Dr. Marlon Farias MD Scribe Attestation: Linn Ignacio, scribed for Dr. Marlon Farias MD on 08/15/19 at 1501. Scribe Documentation Reviewed: Yes Provider Attestation: The documentation as recorded by the Linn platt accurately reflects the service I personally performed and the decisions made by me, Dr. Marlon Farias MD Status of Scribe Document: Viewed
[2019-08-15] MEDS ORDERED: Acetaminophen TAB* 325 MG PO ONE (10:20)
[2019-08-15 10:47] LABS: Urine Appearance Cloudy; Urine Bilirubin Negative (Negative); Urine Blood Negative (Negative); Urine Color Yellow; Urine Glucose Negative (Negative); Urine Ketones Negative (Negative); Urine Nitrite Negative (Negative); Urine Protein Negative (Negative); Urine Specific Gravity 1.015 (1.010-1.030); Urine Urobilinogen Negative (Negative)
[2019-08-15 11:16] LABS: Influenza A Molecular NEGATIVE (Negative); Influenza B Molecular NEGATIVE (Negative)
[2019-08-15 11:41] LABS: HIV 4th Generation Nonreactive (Nonreactive)
[2019-08-15 12:39] VITALS: BP 96/50
== END 2019-08-15 12:37 | disposition home or self-care (01) ==
LOC: ED 09:39
DX: B34.9 Viral infection, unspecified (principal); R10.31 Right lower quadrant pain; R10.32 Left lower quadrant pain; J45.909 Unspecified asthma, uncomplicated; F41.9 Anxiety disorder, unspecified; F32.9 Major depressive disorder, single episode, unspecified; F17.210 Nicotine dependence, cigarettes, uncomplicated; Z87.442 Personal history of urinary calculi
CPT/HCPCS: 36415; 71046; 81003; 84702; 87389; 99282; A9270-GY

== ENCOUNTER 2019-10-18 08:39 | Emergency (ER) | payer OTHER ==
[2019-10-18 08:47] VITALS: BP 102/66
--- NOTE | 2019-10-18 10:12 | UC ---
Abdominal Pain Female HPI - HPI Summary HPI Summary: 19-year-old female presenting with upper abdominal pain 3 days. Patient states it is a constant ache 6/10. Denies radiating pain. States pain is worse at night and better with lying on her stomach. Food does not aggravate or alleviate pain. Denies vomiting and diarrhea. Denies recent URI symptoms. Denies shortness of breath and chest pain. Notes decreased appetite but is "able to eat if she wants to." Denies fever and chills. Denies body aches. Took tylenol for pain but denies relief. No significant PMH. Notes alcohol rarely. - History of Current Complaint Chief Complaint: UCAbdominalPain Stated Complaint: ABDOMINAL PAIN Hx Obtained From: Patient Hx Last Menstrual Period: unk Pain Intensity: 6 Pain Scale Used: 0-10 Numeric Allergies/Adverse Reactions: Allergies Allergy/AdvReac Type Severity Reaction Status Date / Time No Known Allergies Allergy Verified 10/18/19 08:48 Home Medications: Home Medications NK [No Home Medications Reported] 08/15/19 [History Confirmed 08/15/19] PMH/Surg Hx/FS Hx/Imm Hx - Surgical History Surgical History: Yes Surgery Procedure, Year, and Place: T&A, Left OVARY REMOVED FOR TORSION - Family History Known Family History: Positive: Other - cervical cancer - mom Negative: Hypertension - Social History Alcohol Use: Rare Alcohol Amount: Holiday Substance Use Type: Marijuana Substance Use Comment - Amount & Last Used: daily Smoking Status (MU): Light Every Day Tobacco Smoker Type: Cigarettes Amount Used/How Often: 5 CIG/DAY Have You Smoked in the Last Year: No Household Exposure Type: Cigarettes - Immunization History Most Recent Influenza Vaccination: 2017 Most Recent Tetanus Shot: utd Most Recent Pneumonia Vaccination: none Vaccination Up to Date: Yes Review of Systems All Other Systems Reviewed And Are Negative: Yes Constitutional: Positive: Negative ENT: Positive: Negative Respiratory: Positive: Negative Cardiovascular: Positive: Negative Gastrointestinal: Positive: Abdominal Pain - epigastric pain, Nausea. Negative : Vomiting, Diarrhea Genitourinary: Positive: Negative Musculoskeletal: Positive: Negative Neurological/Mental Status: Positive: Negative Physical Exam - Summary Physical Exam Summary: Vital Signs Reviewed: Yes A+Ox3, no distress Eyes: Conjunctiva Clear ENT: Hearing grossly normal, TM x 2 clear, moist, uvula midline, no exudate, no erythema Neck: Positive: Supple Respiratory: Positive: No respiratory distress, No accessory muscle use + CTA throughout no w/r Cardiovascular: RRR nl s1, s2 no m/r Abd: soft + BS, +mild TTP of epigastric region, no distention, no guarding Musculoskeletal Exam: MATOS x 4 without difficulty Neurological: Positive: Alert Psychological: Positive: age appropriate behavior Skin: Positive: no rash, no ecchymosis Vital Signs: Initial Vital Signs Temp 98.5 F 10/18/19 08:42 Pulse 68 10/18/19 08:42 Resp 16 10/18/19 08:42 BP 102/66 10/18/19 08:42 Pulse Ox 100 10/18/19 08:42 Lab Results 10/18/19 10/18/19 Range/Units 09:18 09:20 POC Urine Color Yellow POC Urine Clarity Clear POC Urine pH 6.0 (5-9) POC Ur Specif [place] 1.025 (1.010-1.030) POC Urine Protein Negative (Negative) POC Ur Glucose (UA) Negative (Negative) POC Urine Ketones Negative (Negative) POC Urine Blood Negative (Negative) POC Urine Nitrite Negative (Negative) POC Urine Bilirubin Negative (Negative) POC Urine Urobilinogen 0.2 (Negative) POC U Leukocyte Esteras Negative (Negative) POC Ur Test Negative (Negative) Abd Pain Female Course/Dx - Course Course Of Treatment: Negative UA. Negative urine . Provided patient with GI cocktail. Patient stated that her mom was here and that she needed to go afterwards so was unable to determine whether or not GI cocktail improved pain. VS normal and patient in no pain distress. Offered zofran for home but patient declined. Educated on s/s of worsening abdominal pain that warrants further evaluation and instructed to go to ED if any red flags occur. Patient voiced understanding and agreed with treatment plan. - Differential Dx/Diagnosis Provider Diagnosis: Acute epigastric pain, Nausea Discharge ED - Sign-Out/Discharge Documenting (check all that apply): Patient Departure All imaging exams completed and their final reports reviewed: No Studies - Discharge Plan Condition: Stable Disposition: HOME Referrals: Arabella Self NP [Primary Care Provider] - - Billing Disposition and Condition Condition: STABLE Disposition: Home
[2019-10-18] MEDS ORDERED: Al Hydrox/Mg Hydrox/Simet LIQ* 30 ML UDC PO ONE (10:14)
[2019-10-18] MEDS ORDERED: Ondansetron ODT TAB* 4 MG PO ONE (10:14)
[2019-10-18] MEDS ORDERED: Lidocaine 2% VISCOUS* 15 ML UDC PO ONE (10:15)
== END 2019-10-18 10:35 | disposition home or self-care (01) ==
LOC: UCEAST 08:39
DX: R10.13 Epigastric pain (principal); R11.0 Nausea; F17.210 Nicotine dependence, cigarettes, uncomplicated
CPT/HCPCS: 81003; 84702; 99212; A9270-GY; G0463

== ENCOUNTER 2019-11-11 12:02 | Emergency (ER) | payer OTHER ==
[2019-11-11 12:23] LABS: ABS Basophils 0.1 10^3/ul (0-0.2); ABS Eosinophils 0.2 10^3/ul (0-0.6); ABS Lymphocytes 2.3 10^3/ul (1.0-4.8); ABS Monocytes 0.4 10^3/ul (0-0.8); ABS Neutrophils 2.6 10^3/ul (1.5-7.7); Eosinophil % 4.3 %; Hematocrit 39 % (35-47); Hemoglobin 13.2 g/dL (12.0-16.0); Mean Corpuscular HGB Conc 34 g/dL (31-36); Mean Corpuscular Hemoglobin 28 pg (27-31); Mean Corpuscular Volume 83 fL (80-97); Mean Platelet Volume 9.2 fL (7.4-10.4); Platelet Count 164 10^3/uL (150-450); Red Blood Count 4.67 10^6 /uL (3.70-4.87); Red Cell Distribution Width 14 % (10-15); White Blood Count 5.6 10^3/uL (3.5-10.8)
[2019-11-11 12:39] LABS: ALT 7 U/L (7-52); AST 18 U/L (13-39); Albumin 4.4 g/dL (3.2-5.2); Albumin/Globulin Ratio 1.5 (1-3); Alkaline Phosphatase 82 U/L (34-104); Anion Gap 5 mmol/L (2-11); BUN/Creatinine Ratio 15.2 (8-20); Blood Urea Nitrogen 10 mg/dL (6-24); CO2 Carbon Dioxide 22 mmol/L (22-32); Calcium 9.5 mg/dL (8.6-10.3); Chloride 110 mmol/L (101-111); EGFR African American 138.2 (>60); EGFR Non-African American 114.2 (>60); Glucose 98 mg/dL (70-100); Sodium 137 mmol/L (135-145); Total Protein 7.4 g/dL (6.4-8.9)
[2019-11-11 12:45] LABS: HCG Pregnancy < 0.60 mIU/mL
--- NOTE | 2019-11-11 13:00 | ED ---
- HPI Summary HPI Summary: This patient is a 19 year old female presenting to [facility] with a chief complaint of possible and miscarriage. Patient states she does not know if she is , but assumes she was because of a missed period last month. Patient states she is on control. Patient states abdominal cramping and vaginal bleeding today, which made her believe it is a miscarriage. - History of Current Complaint Chief Complaint: EDVaginalBleeding Stated Complaint: POSSIBLY /BLEEDING PER PT Time Seen by Provider: 11/11/19 12:52 Hx Obtained From: Patient Chief Complaint: Vaginal Bleeding Onset/Duration: Started Hours Ago Pain Intensity: 6 - Assessment Hx Now: - depo - Allergies/Home Medications Allergies/Adverse Reactions: Allergies Allergy/AdvReac Type Severity Reaction Status Date / Time No Known Allergies Allergy Verified 11/11/19 12:10 Home Medications: Home Medications NK [No Home Medications Reported] 08/15/19 [History Confirmed 11/11/19] PMH/Surg Hx/FS Hx/Imm Hx Endocrine/Hematology History: Denies: Hx Diabetes, Hx Systemic Lupus Erythematosus, Hx Sickle Cell Disease , Hx Thyroid Disease, Other Endocrine/Hematological Disorders Cardiovascular History: Denies: Hx Hypertension, Hx Pacemaker/ICD Respiratory History: Reports: Hx Asthma, Other Respiratory Problems/Disorders - PLEURISY? History: Reports: Hx Kidney Stones, Other Problems/Disorders - LEFT OVARIAN TORSION 2005- OVARY REMOVED Denies: Hx Renal Disease Musculoskeletal History: Reports: Other Musculoskeletal History - IDIOPATHIC DWARFISM and vit D-resistant nellie Sensory History: Denies: Hx Contacts or Glasses, Hx Legally Blind, Hx Deafness, Hx Hearing Aid Opthamlomology History: Denies: Hx Contacts or Glasses, Hx Legally Blind Neurological History: Reports: Hx Migraine Psychiatric History: Reports: Hx Anxiety, Hx Depression, Hx Inpatient Treatment , Hx Community Mental Health Tx, Hx Suicide Attempt, Hx Substance Abuse - pos for MJ this admission Denies: Hx Attention Deficit Hyperactivity Disorder, Hx Eating Disorder, Hx Panic Disorder, Hx Bipolar Disorder, Hx of Violent Episodes Against Others - Cancer History Hx Chemotherapy: No Hx Radiation Therapy: No Hx Palliative Cancer Treatment: No - Surgical History Surgery Procedure, Year, and Place: T&A, Left OVARY REMOVED FOR TORSION Hx Anesthesia Reactions: No - Immunization History Date of Tetanus Vaccine: UNK Date of Influenza Vaccine: UNK Infectious Disease History: No Infectious Disease History: Denies: Hx Clostridium Difficile, Hx Hepatitis, Hx Human Immunodeficiency Virus (HIV), Hx of Known/Suspected MRSA, Hx Shingles, Hx Tuberculosis, Hx Known/ Suspected VRE, Hx Known/Suspected VRSA, History Other Infectious Disease, Traveled Outside the [place] in Last 30 Days - Family History Known Family History: Positive: Other - cervical cancer - mom Negative: Hypertension - Social History Alcohol Use: Rare Alcohol Amount: Holiday Hx Substance Use: Yes Substance Use Type: Reports: Marijuana Substance Use Comment - Amount & Last Used: daily Hx Tobacco Use: Yes Smoking Status (MU): Light Every Day Tobacco Smoker Type: Cigarettes Amount Used/How Often: 5 CIG/DAY Have You Smoked in the Last Year: No Review of Systems Positive: Abdominal Pain Positive: other - Vaginal bleeding All Other Systems Reviewed And Are Negative: Yes Physical Exam - Summary Physical Exam Summary: Constitutional: Well-developed, Well-nourished, Alert. (-) Distressed Skin: Warm, Dry HENT: Normocephalic; Atraumatic Eyes: Conjunctiva normal Neck: Musculoskeletal ROM normal neck. (-) JVD, (-) Stridor, (-) Nuchal rigidity Cardio: Rhythm regular, rate normal, Heart sounds normal; Intact distal pulses; Radial pulses are 2+ and symmetric. (-) Murmur Pulmonary/Chest wall: Effort normal. (-) Respiratory distress, (-) Wheezes, (-) Rales Abd: Soft, (-) tenderness, (-) Distension, (-) Guarding, (-) Rebound Musculoskeletal: (-) Edema Lymph: (-) Cervical adenopathy Neuro: Alert, Oriented x3 Psych: Mood and affect Normal - Physical Exam Triage Information Reviewed: Yes Vital Signs Reviewed: Yes Procedures - Sedation Patient Received Moderate/Deep Sedation with Procedure: No Diagnostics - Vital Signs Vital Signs Temp Pulse Resp BP Pulse Ox 11/11/19 12:08 98.8 F 87 16 131/63 98 - Laboratory Lab Results: Lab Results 11/11/19 11/11/19 11/11/19 Range/Units 12:11 12:12 12:12 WBC 5.6 (3.5-10.8) 10^3/uL RBC 4.67 (3.70-4.87) 10^6 /uL Hgb 13.2 (12.0-16.0) g/dL Hct 39 (35-47) % MCV 83 (80-97) fL MCH 28 (27-31) pg MCHC 34 (31-36) g/dL RDW 14 (10-15) % Plt Count 164 (150-450) 10^3/uL MPV 9.2 (7.4-10.4) fL Neut % (Auto) 46.3 % Lymph % (Auto) 42.0 % [place] % (Auto) 6.3 % Eos % (Auto) 4.3 % Baso % (Auto) 1.1 % Absolute Neuts (auto) 2.6 (1.5-7.7) 10^3/ul Absolute Lymphs (auto) 2.3 (1.0-4.8) 10^3/ul Absolute Monos (auto) 0.4 (0-0.8) 10^3/ul Absolute Eos (auto) 0.2 (0-0.6) 10^3/ul Absolute Basos (auto) 0.1 (0-0.2) 10^3/ul Absolute Nucleated RBC 0.0 10^3/ul Nucleated RBC % 0.0 Sodium 137 (135-145) mmol/L Potassium 4.0 (3.5-5.0) mmol/L Chloride 110 (101-111) mmol/L Carbon Dioxide 22 (22-32) mmol/L Anion Gap 5 (2-11) mmol/L BUN 10 (6-24) mg/dL Creatinine 0.66 (0.51-0.95) mg/dL Est GFR ( Amer) 138.2 (>60) Est GFR (Non-Af Amer) 114.2 (>60) BUN/Creatinine Ratio 15.2 (8-20) Glucose 98 (70-100) mg/dL Calcium 9.5 (8.6-10.3) mg/dL Total Bilirubin 0.70 (0.2-1.0) mg/dL AST 18 (13-39) U/L ALT 7 (7-52) U/L Alkaline Phosphatase 82 (34-104) U/L Total Protein 7.4 (6.4-8.9) g/dL Albumin 4.4 (3.2-5.2) g/dL Globulin 3.0 (2-4) g/dL Albumin/Globulin Ratio 1.5 (1-3) Beta HCG, Quant < 0.60 mIU/mL Blood Type O Positive Antibody Screen Pending Result Diagrams: 11/11/19 12:12 11/11/19 12:11 Lab Statement: Any lab studies that have been ordered have been reviewed, and results considered in the medical decision making process. Course/Dx - Course Course Of Treatment: 19 y/o F p/w vaginal bleeding. test negative. Likely irregular bleeding secondary to menstrual cycle/depo. Abdomen soft. Hb is stable. No vaginal discharge or pain. - Diagnoses Provider Diagnoses: Vaginal bleeding Discharge ED - Sign-Out/Discharge Documenting (check all that apply): Patient Departure - Discharge - Discharge Plan Condition: Stable Disposition: HOME Referrals: Arabella Self NP [Primary Care Provider] - Additional Instructions: You were seen in the emergency department for vaginal bleeding. Your test was negative. Please follow up with your primary care doctor in next 2-3 days and return to emergency department for worsening or concerning symptoms. It was a pleasure taking care of you today. - Billing Disposition and Condition Condition: STABLE Disposition: Home - Attestation Statements Document Initiated by Ajay: Yes Documenting Scribe: Cong Bettencourt Provider For Whom Ajay is Documenting (Include Credential): Sue Valdivia MD Scribe Attestation: ICong, scribed for Sue Valdivia MD on 11/11/19 at 1311. Scribe Documentation Reviewed: Yes Provider Attestation: The documentation as recorded by the Cong platt accurately reflects the service I personally performed and the decisions made by , Sue Valdivia MD Status of Scribe Document: Viewed
[2019-11-11 13:15] VITALS: BP 105/69
== END 2019-11-11 13:13 | disposition home or self-care (01) ==
LOC: ED 12:02
DX: N93.9 Abnormal uterine and vaginal bleeding, unspecified (principal); Z32.02 Encounter for pregnancy test, result negative; F17.210 Nicotine dependence, cigarettes, uncomplicated
CPT/HCPCS: 36415; 80053; 84702; 85025; 86850; 86900; 86901; 99282